=== PATIENT | female | born 1930 | race Caucasian/White ===

== ENCOUNTER → 2017-05-01 | Outpatient (CLI) | payer OTHER, MEDICARE ==
[2016-04-02 08:08] VITALS: BP 173/77
--- NOTE | 2017-05-01 15:00 | CT ---
STUDY: CT HEAD WITHOUT CONTRAST HISTORY: Hypertension, TIA. Dizzy. COMPARISON: Brain MRI from January 02, 2014. TECHNIQUE: Multiple axial images of the head were obtained from the skull base to the vertex without administration of IV contrast. Automated exposure control (AEC) was utilized to adjust the MA and/or kV. Findings: The sulci, cisterns and ventricles are prominent consistent with diffuse volume loss. There are confluent and scattered foci of low attenuation in the periventricular and subcortical whit e matter of both hemispheres. This is a nonspecific finding which likely represents microangiopathic change in a patient of this age. There old lacunar infarcts in the basal ganglia bilaterally. There is no evidence of acute territoria l infarction, hemorrhage, mass, mass effect or midline shift. There are no abnormal extra-axial fluid collections. There is no evidence of acute osseous abnormality or significant soft tissue swelling. IMPRESSION: 1. No evidence of acute intracranial abnormality. 2. 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 3. Nonspecific white matter change and volume loss as described. 4. If there remains strong clinical concern for acute intracranial abnormality, then an MRI examinati on should be considered for further evaluation. Reported By:
== END ==
LOC: RAD 13:45
PROVIDERS: ATTEND Internal Medicine
DX: R27.0 Ataxia, unspecified (principal)
CPT/HCPCS: 70450

== ENCOUNTER 2017-07-29 22:05 | Emergency (ER) | payer OTHER, MEDICARE ==
[2017-07-29 22:12] VITALS: BMI 23.3
--- NOTE | 2017-07-29 23:18 | RAD ---
Left ankle, three views Indication: Fall with ankle pain Findings: There is soft tissue swelling about the ankle. No acute cortical disruption or malalignment of the ankle identified. There is minimally displaced oblique fracture of the 5th metatarsal diaphysis, seen on the oblique im age. Impression: Oblique fracture of the 5th metatarsal, of indeterminate chronicity. Correlate with history/exam. Rec ommend dedicated radiographs, if indicated. No acute skeletal injury of the left ankle. Reported By:
--- NOTE | 2017-07-29 23:35 | DR.GENAD ---
HPI - PCP Primary Care Physician: elisabeth - HPI Comment HPI Comment: PATIENT DENIES LOC. DENIES NECK PAIN. CHRONIC BACK PAIN THAT HAVE NOT CHANGE. - Complaint/Symptoms Chief Complaint Doctors Comments: FELL, INJURY LEFT ANKLE AND LEFT HAND WITH LACERATION LEFT RING FINGER AND ABRASIONS FINGERS OF LT HAND. TD NOT UTD. Chief Complaint:: pt fell and cut lt fingers and also hurt lt ankle fell appox 4 foot - Nurses notes reviewed Nurses Notes Review: Yes - Source History Provided: Patient - Mode of Arrival Mode of Arrival: Wheelchair - Timing Onset of Chief Complaint: 07/29/17 Came on: Suddenly - Duration Duration: Constant Duration: Hours - Severity Severity: Moderate PMH - PMH Past Medical History: Yes Past Medical History: Angina, Anxiety, Depression, Dyslipidemia, Hypertension, Hypothyroidism Past Surgical History: Yes Surgical History: [employer] Surgery, Hysterectomy, Ortho Surgery, Thyroidectomy Past Surgical History Comment: bilat knee replacement - Family History History of Family Medical Conditions: Yes Family Medical History: Coronary Artery Disease, Heart Failure, Sudden Cardiac , Hypertension - Social History Does any household member use tobacco: No Alcohol Use: None Do you use any recreational Drugs:: No Lives With: Alone Lives Where: Home - infectious screening In the last 2 months have you had wt loss of >10#?: NO Have you traveled outside the country in the last 6 months?: No Isolation: Standard ROS - Review of Systems Constitutional: No Symptoms Reported Eyes: No Symptoms Reported ENTM: No Symptoms Reported Respiratoy: No Symptoms Reported Cardiovascular: No Symptoms Reported Gastrointestinal/Abdominal: No Symptoms Reported Genitourinary: No Symptoms Reported Neurological: No Symptoms Reported Musculoskeletal: Left, Hand, Ankle Integumentary: Other (LACERATION LT RING FINGRT AND ABRSIONSLT FINGERS.) Hematologic/Lymphatic: No Symptoms Reported Endocrine: No Symptoms Reported All Other Systems: Reviewed and Negative PE - Vital Signs Vitals: Temperature 96.8 F Pulse Rate [Right Brachial] 76 Pulse Rate 94 Respiratory Rate 16 Blood Pressure [Left Arm] 161/70 Blood Pressure [Right Arm] 142/76 Blood Pressure 161/71 O2 Sat by Pulse Oximetry 100 - General Limitations: No Limitations General Appearance: Alert - Head Head Exam: Normal Inspection - Eyes Eye exam: Normal Appearance - ENT ENT Exam: Normal External Ear Exam TM/Canal Exam: Bilateral Normal Nose Exam: Normal Nose Exam Mouth Exam: Normal Inspection Throat Exam: Normal Inspection - Neck Neck Exam: Trachea Midline - Chest Chest Inspection: Symmetric Chest Wall Rise - Respiratory Respiratory Exam: Normal Lung Sounds Bilat Respiratory Exam: Bilateral Clear to Auscultation - Cardiovascular Cardiovascular Exam: Regular Rate, Normal Rhythm, Normal Heart Sounds - Abdominal Exam Abdominal Exam: Normal Bowel Sounds, Soft. negative: Tenderness - Extremities Extremities Exam: Normal Inspection - Back Back Exam: negative: Normal Inspection (CHRONIC BACK PAIN, NO SPASM.) - Neurologic Neurological Exam: Alert, Oriented X3. negative: CN II-XII Intact - Psychiatric Psychiatric Exam: Normal Affect, Normal Mood - Skin Skin Exam: Erythema MDM - Additional Information Additional Information Obtained From: Family - Differential Diagnosis Differential Diagnosis: LT 4TH FINGER LAC 3CM, ABRSION FINGERS, LT HAND FX, ANKLE SPRAIN LT/FR Course - Treatment Treatment: SEE ORDERS. LAC CLOSE IN ED. TD GIVEN IN ED. - Reevaluation 1st: Improved - Education/Counseling Education/Counseling: Patient, Family, Education Educated On: Treatment, Diagnosis, Needs for Follow Up ROR - XRAY XRAY Interpreted by: Radiologist XRAY Findings: REPORT DISCUSS WITH PATIENT AND FAMILY. - Diagnosis Discharge Problem: Laceration of left ring finger Qualifiers: Foreign body presence: with foreign body Left ankle sprain Qualifiers: Encounter type: initial encounter Involved ligament of ankle: unspecified ligament Qualified Code(s): S93.402A - Sprain of unspecified ligament of left ankle, initial encounter Abrasion of left hand and fingers Qualifiers: Encounter type: initial encounter Qualified Code(s): S60.512A - Abrasion of left hand, initial encounter - Discharge Plan Disposition: HOME, SELF-CARE Condition: Stable Prescriptions: Cephalexin [KEFLEX CAP 500 MG *] 500 mg PO TID #21 cap Ibuprofen [MOTRIN TAB 600 MG *] 600 mg PO BID PRN #20 tab PRN Reason: Pain/Inflammation - Follow ups/Referrals Follow ups/Referrals: Tim Cueva [Primary Care Provider] - 3 days - Instructions Instructions: Intermetacarpal Sprain, Acute Ankle Sprain With Phase I Rehab- SportsMed, Laceration Care, Adult, [id number] Additional Instructions: RETURN TO ED IF WORSE. SUTURE OUT IN 10 DAYS
[2017-07-29] MEDS ORDERED: KEFLEX CAP 500 MG PO ONE ×2 (23:43→23:51)
[2017-07-29] MEDS ORDERED: MOTRIN TAB 600 MG PO ONE ×2 (23:44→23:51)
--- NOTE | 2017-07-30 00:07 | RAD ---
Left hand, three views. Indication: Fall with hand injury Findings: There is generalized osteopenia. 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 There is mild degenerative disease at the radiocarpal and finger IP joints. TFC cho ndrocalcinosis is noted. There is a small calcification along the dorsal aspect of the proximal carpa l row seen on the lateral view. Otherwise, no acute cortical disruption or malalignment identified. Impression: No evidence for acute skeletal injury of the left hand. Small calcification along the dorsum of the proximal wrist may represent chronic soft tissue calcific ation, although acute avulsion fracture is not excluded. Correlate with exam. Consider wrist radiogra phs, if indicated. Chondrocalcinosis. Though nonspecific, this finding can be seen with CPPD arthropathy. Degenerative changes as above. Generalized osteopenia. Reported By:
[2017-07-30] MEDS ORDERED: ADACEL TDaP IM ONE ×2 (00:08→00:09)
[2017-07-30 00:39] VITALS: BP 142/76
== END 2017-07-30 00:38 | disposition home or self-care (01) ==
LOC: ER 22:16
PROC: 0XQTXZZ Repair Left Ring Finger, External Approach (ICD-10-PCS; principal; 2017-07-29)
DX: S61.215A Laceration without foreign body of left ring finger without damage to nail, initial encounter (principal); S93.402A Sprain of unspecified ligament of left ankle, initial encounter; S60.512A Abrasion of left hand, initial encounter; W19.XXXA Unspecified fall, initial encounter; Y92.9 Unspecified place or not applicable
CPT/HCPCS: 12001; 73130; 73610; 90471; 99283; 99285